=== PATIENT | male | born 2000 | race Caucasian/White ===

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

== ENCOUNTER 2020-05-31 12:52 | Emergency (ER) | payer SELFPAY ==
[~2020-05-31] VITALS: Ht 185.4 cm; Wt 113.6 kg
[~2020-05-31 12:52] MED LIST changes: +TESSALON P100 MG/CAP PO
[2020-05-31 12:57] VITALS: BP 145/92; TEMP 98.4
[2020-05-31 13:54] VITALS: PULSE 75
== END 2020-05-31 13:54 | disposition home or self-care (01) ==
LOC: COL.ER 12:52
DX: M76.71 Peroneal tendinitis, right leg (principal)

== ENCOUNTER 2020-09-19 11:07 | Emergency (ER) | payer SELFPAY ==
[~2020-09-19] VITALS: Ht 185.4 cm; Wt 109.1 kg
[2020-09-19 13:16] LABS: BASO % 0.3 % (0.0-2.0); GRAN # 9.2 (1.4-6.5); HEMOGLOBIN 15.4 g/dl (13.5-18.0); LYMPH # 1.1 (1.2-3.4); LYMPH % 9.8 % (20.0-51.0); MEAN CELL VOLUME 85 fl (80.0-100.0); MEAN CORPUSCULAR HEMOGLOBIN 31 pg (27.0-31.0); MEAN CORPUSCULAR HGB CONC 36 g/dl (33.0-37.0); MEAN PLATELET VOLUME 10.5 fl (7.4-10.4); MONO # 0.7 (0.1-0.6); MONO % 6.5 % (1.7-9.3); PLATELET COUNT 223 K/mm3 (130-400); RED BLOOD COUNT 5.04 M/mm3 (4.20-5.60); REDCELL DISTRIBUTION WIDTH-CV 11.8 % (11.5-14.5)
[2020-09-19 13:29] LABS: ALANINE AMINOTRANSFERASE 23 U/L (4-49); ALKALINE PHOSPHATASE 42 U/L (50-136); ANION GAP 15 mmol/L (7-16); AST,SGOT 24 U/L (15-37); BLOOD UREA NITROGEN 18 mg/dL (9-20); CALCIUM 9.9 mg/dL (8.4-10.2); CARBON DIOXIDE 20 mmol/L (22-30); CHLORIDE 104 mmol/L (98-107); CREATININE, serum 0.86 (0.66-1.25); GLUCOSE 105 mg/dL (74-106); POTASSIUM 3.1 mmol/L (3.4-5.0); SODIUM 139 mmol/L (137-145)
[2020-09-19 13:31] LABS: C-REACTIVE PROTEIN < 0.5 mg/dL (0.0-0.9)
[2020-09-19 15:05] LABS: COLLECTION METHOD CLEAN CATCH
[2020-09-19 15:15] LABS: MUCOUS Present /lpf; PH 7 (5-8); SQUAMOUS EPITHELIAL None Seen /hpf; URINE APPEARANCE Turbid; URINE BACTERIA None Seen /hpf; URINE BILIRUBIN Negative (NEGATIVE); URINE BLOOD Negative (NEGATIVE); URINE COLOR Amber; URINE GLUCOSE Negative (NEGATIVE); URINE KETONE 2+ (NEGATIVE); URINE LEUKOCYTE ESTERASE Negative (NEGATIVE); URINE NITRATE Negative (NEGATIVE); URINE PROTEIN(semi-quant) 2+ (NEGATIVE); URINE RBC 0-2 /hpf
[2020-09-19] MEDS ORDERED: ZOFRAN ODT4 MG PO (16:28)
[2020-09-19 16:58] VITALS: BP 112/62; PULSE 73; TEMP 97.6
== END 2020-09-19 17:00 | disposition home or self-care (01) ==
LOC: COL.ER 11:07
PROVIDERS: Physician Assistant
DX: R11.15 Cyclical vomiting syndrome unrelated to migraine (principal); R10.84 Generalized abdominal pain
CPT/HCPCS: J0780; J2405; J2550; J7030; J7120; Q9967

== ENCOUNTER 2020-10-20 08:40 | Emergency (ER) | payer SELFPAY ==
[~2020-10-20] VITALS: Ht 185.4 cm; Wt 109.1 kg
[~2020-10-20 08:40] MED LIST changes: +ZOFRAN ODT4 MG PO
[2020-10-20 08:51] VITALS: TEMP 97.4
[2020-10-20 09:14] LABS: BASO # 0.1 (0.0-0.2); BASO % 0.6 % (0.0-2.0); EOS % 0.3 % (0-4.0); GRAN # 10.1 (1.4-6.5); GRAN % 72.8 % (42.2-75.2); HEMATOCRIT 44.8 % (42.0-52.0); HEMOGLOBIN 16.1 g/dl (13.5-18.0); LYMPH # 2.6 (1.2-3.4); MEAN CELL VOLUME 85 fl (80.0-100.0); MEAN CORPUSCULAR HEMOGLOBIN 31 pg (27.0-31.0); MEAN CORPUSCULAR HGB CONC 36 g/dl (33.0-37.0); MEAN PLATELET VOLUME 10.5 fl (7.4-10.4); PLATELET COUNT 269 K/mm3 (130-400); RED BLOOD COUNT 5.28 M/mm3 (4.20-5.60); REDCELL DISTRIBUTION WIDTH-CV 11.6 % (11.5-14.5)
[2020-10-20 09:25] LABS: ALBUMIN 5.1 gm/dL (3.5-5.0); BILIRUBIN,TOTAL 0.9 mg/dL (0.0-1.0); CALCIUM 9.8 mg/dL (8.4-10.2); CREATININE, serum 0.96 (0.66-1.25)
[2020-10-20] MEDS ORDERED: ZOFRAN ODT4 MG PO (10:44)
[2020-10-20 10:48] VITALS: BP 122/68; PULSE 72
== END 2020-10-20 10:50 | disposition home or self-care (01) ==
LOC: COL.ER 08:40
PROVIDERS: Emergency Medicine
DX: R11.15 Cyclical vomiting syndrome unrelated to migraine (principal); R06.4 Hyperventilation; F12.90 Cannabis use, unspecified, uncomplicated
CPT/HCPCS: J1630; J1885; J7030